=== PATIENT | female | born 1955 | race American Indian/Alaskan Native ===

== ENCOUNTER 2019-02-08 06:07 | Inpatient (IN) | payer MEDICARE ==
--- NOTE | 2019-02-02 12:17 | Anesthesia Consultation ---
Anesthesia Consult and Med Hx Date of service: 02/08/19 - Airway Anesthetic Teeth Evaluation: Edentulous ROM Head & Neck: Adequate Mental/Hyoid Distance: Adequate Mallampati Class: Class I Intubation Access Assessment: Good - Pre-Operative Health Status ASA Pre-Surgery Classification: ASA2 Proposed Anesthetic Plan: General - Pulmonary Hx Asthma: No (HX PE 2010-resolved) Hx Sleep Apnea: No (Yes, in the past; resolved after weight loss. Neg sleep study) - Cardiovascular System Hx Hypertension: Yes - Central Nervous System Hx Psychiatric Problems: Yes (Depression) - Gastrointestinal Hx Gastroesophageal Reflux Disease: Yes - Hematic Hx Anemia: Yes
[2019-02-02 12:29] LABS: Basophils # (Auto) 0.1 K/mm3 (0.0-0.1); Basophils % (Auto) 1.8 % (0.0-1.8); Eosinophils # (Auto) 0.1 K/mm3 (0.0-0.4); Eosinophils % (Auto) 4.1 % (0.0-4.3); Hematocrit 37.3 % (30.3-42.9); Hemoglobin 12.5 gm/dl (10.1-14.3); Lymphocytes # (Auto) 1.2 K/mm3 (1.2-5.4); Mean Corpuscular HGB Conc 33 % (30-34); Mean Corpuscular Volume 92 fl (79-97); Monocytes # (Auto) 0.2 K/mm3 (0.0-0.8); Monocytes % (Auto) 7.5 % (0.0-7.3); Platelet Count 244 K/mm3 (140-440); Red Blood Count 4.07 M/mm3 (3.65-5.03); Red Cell Distribution Width 14.9 % (13.2-15.2)
[2019-02-02 12:43] LABS: Alanine Aminotransferase 23 units/L (7-56); BUN/Creatinine Ratio 19; Blood Urea Nitrogen 13 mg/dL (7-17); Calcium 9.2 mg/dL (8.4-10.2); Chol/HDL Ratio 1.54 %; HDL Cholesterol 83 mg/dL (40-59); Hemolysis Index 8; LDL Cholesterol,Direct 43 mg/dL (50-130)
[~2019-02-08 06:07] MED LIST: ANCEF/STERILE WATER 2 GM/20 ML 2 GM/20 ML SYRINGE IV NR; FLAGYL 500 MG/100 ML 500 MG/100 ML BAG IV NR; ceFAZolin 2 GM in NACL 0.9% 100 ML IV ONE
[2019-02-08] MEDS ORDERED: NACL BACTERIOSTATIC INFILTRATI ONE (06:39)
[2019-02-08] MEDS: LACTATED RINGERS 1,000 ML IV SCH ×4 (06:50→22:03)
[2019-02-08] MEDS ORDERED: XYLOCAINE 1% 20 mL ONE (06:55)
[2019-02-08] MEDS ORDERED: MARCAINE-EPI 0.5%-1:200,000 INFILTRATI ONE ×3 (06:55→08:31)
[2019-02-08] MEDS ORDERED: DILAUDID ONE (07:11)
[2019-02-08] MEDS ORDERED: DIPRIVAN 10 MG/ML IV ONE (07:12)
[2019-02-08] MEDS ORDERED: ZEMURON IV ONE (07:13)
[2019-02-08] MEDS ORDERED: XYLOCAINE MPF 2% ONE (07:13)
--- NOTE | 2019-02-08 07:19 | Anesthesia Day of Surgery ---
Anesthesia Day of Surgery - Day of Surgery Patient Examined: Yes Patient H&P Reviewed: Yes Patient is NPO: Yes
[2019-02-08] MEDS ORDERED: ZOFRAN IV PRN ×2 (07:20→07:43)
[2019-02-08] MEDS ORDERED: DILAUDID IV PRN ×2 (07:20→07:43)
[2019-02-08] MEDS ORDERED: LOVENOX SUB-Q NR (07:24)
[2019-02-08] MEDS ORDERED: LOVENOX SUB-Q ONE (07:28)
[2019-02-08] MEDS ORDERED: APRESOLINE IV PRN ×2 (07:43→09:58)
[2019-02-08] MEDS ORDERED: NORCO PO PRN (07:43)
[2019-02-08] MEDS ORDERED: MORPHINE IV PRN (07:43)
[2019-02-08] MEDS ORDERED: XYLOCAINE 1% 20 mL INFILTRATI ONE ×2 (08:32)
[2019-02-08] MEDS ORDERED: NACL 0.9% IR ONE ×2 (08:32)
[2019-02-08] MEDS ORDERED: BLOXIVERZ ONE (09:11)
[2019-02-08] MEDS ORDERED: ROBINUL ONE (09:11)
[2019-02-08] MEDS ORDERED: ZOFRAN ONE (09:12)
[2019-02-08] MEDS ORDERED: NACL 0.9% 1000 ML 1,000 ML ONE (09:19)
[2019-02-08] MEDS: TORADOL IV SCH ×3 (10:35→22:16)
--- NOTE | 2019-02-08 13:05 | Post Anesthesia Evaluation ---
- Post Anesthesia Evaluation Patient Participated: Yes Airway Patent: Yes Stable Respiratory Function: Yes Nausea/Vomiting: No Temp > 96.8F: Yes Pain Manageable: Yes Adequeate Hydration: Yes Anesthesia Complications: No Block Receding Appropriately: Not Applicable Patient on Ventilator: No
[2019-02-08] MEDS: MYLICON PO PRN ×2 (14:36→22:02)
[2019-02-08] MEDS: NORCO 10/325 PO SCH ×2 (19:39→22:02)
[2019-02-08] MEDS: REGLAN IV PRN (22:03)
[2019-02-09] MEDS: TORADOL IV SCH ×2 (03:00→12:42)
[2019-02-09 06:16] LABS: Basophils % (Auto) 0.4 % (0.0-1.8); Eosinophils % (Auto) 0.4 % (0.0-4.3); Hematocrit 32.5 % (30.3-42.9); Lymphocytes # (Auto) 1.6 K/mm3 (1.2-5.4); Lymphocytes % (Auto) 21.6 % (13.4-35.0); Mean Corpuscular HGB Conc 34 % (30-34); Mean Corpuscular Volume 91 fl (79-97); Monocytes # (Auto) 0.6 K/mm3 (0.0-0.8); Monocytes % (Auto) 7.8 % (0.0-7.3); Platelet Count 196 K/mm3 (140-440); Red Blood Count 3.57 M/mm3 (3.65-5.03); Red Cell Distribution Width 14.6 % (13.2-15.2)
[2019-02-09] MEDS: LACTATED RINGERS 1,000 ML IV SCH (06:31)
[2019-02-09 06:40] LABS: BUN/Creatinine Ratio 9; Blood Urea Nitrogen 8 mg/dL (7-17); Calcium 8.5 mg/dL (8.4-10.2); Hemolysis Index 3
--- NOTE | 2019-02-09 06:51 | Discharge Summary ---
Providers - Providers Date of Admission: 02/08/19 06:07 Date of discharge: 02/09/19 Attending physician: FREIDA MESSINA Primary care physician: ROLAN BOOTH Hospitalization Reason for admission: postop Condition: Good Procedures: 02/08/19: Laparoscopic partial gastrectomy, HHR Hospital course: 63F admitted after her operation for routine monitoring. She was managed on the general surgical floor. Her BP was high after surgery, this resolved with medication and was lower on the day of discharge. Patient ambulated, tolerated a CLD, pain under control, and was dc home POD1. Disposition: DC-01 TO HOME OR SELFCARE Core Measure Documentation - Palliative Care Palliative Care/ Comfort Measures: Not Applicable - Core Measures Any of the following diagnoses?: none - VTE Discharge Requirements Deep Vein Thrombosis/Pulmonary Embolism Present on Admission: No - Acute [place] Discharge Requirements Aspirin at discharge: No Reason for no aspirin on DC: Surgical contraindication - Heart Failure Discharge Requirements ZOIE/ARB for LVSD if EF <40%: Not Applicable - Stroke Discharge Requirements Statin for LDL = or >70 mg/dl on DC: Not Applicable Exam - Physical Exam Narrative exam: Gen: AAO, NAD Heart: RRR Lungs: Clear Abd: Obese, soft, NT, ND. Bandages c/d/i. Ext: No LE Edema - Constitutional Vitals: Temp Pulse Resp BP Pulse Ox 98.5 F 61 20 91/56 99 02/09/19 00:20 02/09/19 04:57 02/09/19 04:57 02/09/19 04:57 02/09/19 00:20 Plan Diet: clear liquids Wound: keep clean and dry Special Instructions: no heavy lifting Additional Instructions: Marcelino Messina as scheduled Follow up with: ROLAN BOOTH MD [Primary Care Provider] - 7 Days
[2019-02-09] MEDS ORDERED: NACL 0.9% 1000 ML 1,000 ML IV ONE (07:30)
[2019-02-09] MEDS ORDERED: COZAAR PO SCH (08:00)
[2019-02-09] MEDS: MYLICON PO PRN (08:24)
[2019-02-09] MEDS: REGLAN IV PRN (08:24)
[2019-02-09] MEDS: NORCO 10/325 PO SCH (09:36)
[2019-02-09] MEDS ORDERED: HCTZ PO SCH (10:00)
[2019-02-09] MEDS ORDERED: WELLBUTRIN PO SCH (10:00)
[2019-02-09] MEDS ORDERED: LOVENOX SUB-Q SCH (10:00)
[2019-02-09] MEDS ORDERED: PEPCID PO SCH (10:00)
[2019-02-09] MEDS ORDERED: NORVASC PO SCH (10:00)
[2019-02-09 12:49] VITALS: BP 133/56
== END 2019-02-09 13:45 | disposition home or self-care (01) | DRG 327 ==
LOC: 3A 06:07 → 3B-SURG 10:03
PROVIDERS: ADMIT Specialist; ATTEND Specialist
PROC: 0BQT4ZZ Repair Diaphragm, Percutaneous Endoscopic Approach (ICD-10-PCS; principal; 2019-02-08)
PROC: 0D160ZA Bypass Stomach to Jejunum, Open Approach (ICD-10-PCS; 2019-02-08)
PROC: 0DB64ZZ Excision of Stomach, Percutaneous Endoscopic Approach (ICD-10-PCS; 2019-02-08)
DX: K95.89 Other complications of other bariatric procedure (principal); Z68.41 Body mass index [BMI] 40.0-44.9, adult; E66.01 Morbid (severe) obesity due to excess calories; K44.9 Diaphragmatic hernia without obstruction or gangrene; F32.9 Major depressive disorder, single episode, unspecified; K30 Functional dyspepsia; K59.01 Slow transit constipation; Y83.2 Surgical operation with anastomosis, bypass or graft as the cause of abnormal reaction of the patient, or of later complication, without mention of misadventure at the time of the procedure; I10 Essential (primary) hypertension; K21.9 Gastro-esophageal reflux disease without esophagitis; Z90.49 Acquired absence of other specified parts of digestive tract; Z79.899 Other long term (current) drug therapy; Y92.098 Other place in other non-institutional residence as the place of occurrence of the external cause; Z86.711 Personal history of pulmonary embolism
CPT/HCPCS: 36415; 80048; 80053; 80061; 84443; 85025; 88307; 94760; G0378; A4217; J0360; J0690; J1170; J1650; J1885; J2270; J2405; J2704; J2710; J2765; J7030; J7120

== ENCOUNTER 2019-02-10 09:26 | Inpatient (IN) | payer MEDICARE ==
[2019-02-10] MEDS ORDERED: ASPIRIN PO ONE (09:33)
[2019-02-10 10:19] LABS: Basophils % (Auto) 0.7 % (0.0-1.8); Eosinophils # (Auto) 0.2 K/mm3 (0.0-0.4); Eosinophils % (Auto) 3.6 % (0.0-4.3); Hematocrit 35.2 % (30.3-42.9); Lymphocytes # (Auto) 1.2 K/mm3 (1.2-5.4); Lymphocytes % (Auto) 20.7 % (13.4-35.0); Mean Corpuscular HGB Conc 34 % (30-34); Mean Corpuscular Volume 92 fl (79-97); Monocytes # (Auto) 0.5 K/mm3 (0.0-0.8); Monocytes % (Auto) 7.9 % (0.0-7.3); Platelet Count 214 K/mm3 (140-440); Red Blood Count 3.84 M/mm3 (3.65-5.03); Red Cell Distribution Width 14.4 % (13.2-15.2)
--- NOTE | 2019-02-10 10:22 | XRay Report ---
CHEST 1 VIEW INDICATION / CLINICAL INFORMATION: Chest Pain. COMPARISON: None available. FINDINGS: Patient is rotated. SUPPORT DEVICES: None. HEART / MEDIASTINUM: No significant abnormality. LUNGS / PLEURA: There is blunting of the right costophrenic angle characteristic of a small amount of pleural fluid or pleural thickening.. No pneumothorax. There is minimal linear scar or atelectasis in the left lower lung zone ADDITIONAL FINDINGS: No significant additional findings. IMPRESSION: 1. There is a small amount of right pleural fluid or pleural thickening. No pneumothorax is seen. Signer Name: Fercho Alejandre MD Signed: 02/10/2019 10:17 AM Workstation Name: [id number]
--- NOTE | 2019-02-10 10:29 | Emergency Department Report ---
ED General Adult HPI - General Chief complaint: Chest Pain Stated complaint: CHEST DISCOMFORT/CAN'T EAT Time Seen by Provider: 02/10/19 09:48 Source: patient Mode of arrival: Ambulatory Limitations: No Limitations - History of Present Illness Initial comments: She is a 63-year-old female status post gastric bypass and hernia repair who presents with nausea and vomiting and inability to eat. Patient states that ever since she had her surgery she's not been able to swallow any food or liquid down. Patient was seen by Dr. Messina she states that - Related Data Home Medications Medication Instructions Recorded Confirmed Last Taken HYDROcodone/APAP 10-325 [[place] 1 tab PO BID 02/04/19 02/04/19 02/07/19 21:00 10-325 mg TAB] Losartan/Hydrochlorothiazide 1 each PO DAILY 02/04/19 02/04/19 02/07/19 21:00 [Hyzaar 100-12.5 Tablet] Ranitidine HCl [Zantac] 150 mg PO DAILY 02/04/19 02/04/19 02/07/19 21:00 amLODIPine [Norvasc] 10 mg PO DAILY 02/04/19 02/08/19 02/08/19 05:15 buPROPion [Wellbutrin] 200 mg PO DAILY 02/04/19 02/04/19 02/07/19 21:00 Allergies Allergy/AdvReac Type Severity Reaction Status Date / Time No Known Allergies Allergy Verified 02/10/19 09:28 ED Review of Systems ROS: Stated complaint: CHEST DISCOMFORT/CAN'T EAT Other details as noted in HPI Constitutional: denies: chills, fever Eyes: denies: eye pain, eye discharge, vision change ENT: denies: ear pain, throat pain Respiratory: denies: cough, shortness of breath, wheezing Cardiovascular: chest pain. denies: palpitations Endocrine: no symptoms reported Gastrointestinal: nausea, vomiting. denies: abdominal pain, diarrhea Genitourinary: denies: urgency, dysuria, discharge Musculoskeletal: denies: back pain, joint swelling, arthralgia Skin: denies: rash, lesions Neurological: denies: headache, weakness, paresthesias Psychiatric: denies: anxiety, depression Hematological/Lymphatic: denies: easy bleeding, easy bruising ED Past Medical Hx - Past Medical History Hx Hypertension: Yes Hx Pulmonary Embolism: Yes (bilateral 2010) Hx GERD: Yes Hx Arthritis: Yes Hx Asthma: No (HX PE 2011-resolved) - Surgical History Hx Cholecystectomy: Yes Additional Surgical History: gastrectomy, hernia repair - Social History Smoking Status: Never Smoker Substance Use Type: None - Medications Home Medications: Home Medications Medication Instructions Recorded Confirmed Last Taken Type HYDROcodone/APAP 10-325 [[place] 1 tab PO BID 02/04/19 02/04/19 02/07/19 21:00 History 10-325 mg TAB] Losartan/Hydrochlorothiazide 1 each PO DAILY 02/04/19 02/04/19 02/07/19 21:00 History [Hyzaar 100-12.5 Tablet] Ranitidine HCl [Zantac] 150 mg PO DAILY 02/04/19 02/04/19 02/07/19 21:00 History amLODIPine [Norvasc] 10 mg PO DAILY 02/04/19 02/08/19 02/08/19 05:15 History buPROPion [Wellbutrin] 200 mg PO DAILY 02/04/19 02/04/19 02/07/19 21:00 History ED Physical Exam - General Limitations: No Limitations General appearance: alert, in no apparent distress - Head Head exam: Present: atraumatic, normocephalic - Eye Eye exam: Present: normal appearance - ENT ENT exam: Present: mucous membranes moist - Neck Neck exam: Present: normal inspection - Respiratory Respiratory exam: Present: normal lung sounds bilaterally. Absent: respiratory distress - Cardiovascular Cardiovascular Exam: Present: regular rate, normal rhythm. Absent: systolic murmur, diastolic murmur, rubs, gallop - GI/Abdominal GI/Abdominal exam: Present: soft, normal bowel sounds - Extremities Exam Extremities exam: Present: normal inspection - Back Exam Back exam: Present: normal inspection - Neurological Exam Neurological exam: Present: alert, oriented X3 - Psychiatric Psychiatric exam: Present: normal affect, normal mood - Skin Skin exam: Present: warm, dry, intact, normal color. Absent: rash ED Course Vital Signs 02/10/19 09:33 Temperature 98 F Pulse Rate 65 Respiratory 16 Rate Blood Pressure 149/69 [Left] O2 Sat by Pulse 99 Oximetry - Consultations Consultation #1: 02/10/19 13:[address] Collins she willsee the patient in the morning. ED Medical Decision Making - Lab Data Result diagrams: 02/10/19 10:00 07/04/19 10:00 Lab Results 02/10/19 02/10/19 Range/Units 10:00 10:00 WBC 5.8 (4.5-11.0) K/mm3 RBC 3.84 (3.65-5.03) M/mm3 Hgb 12.0 (10.1-14.3) gm/dl Hct 35.2 (30.3-42.9) % MCV 92 (79-97) fl MCH 31 (28-32) pg MCHC 34 (30-34) % RDW 14.4 (13.2-15.2) % Plt Count 214 (140-440) K/mm3 Lymph % (Auto) 20.7 (13.4-35.0) % [place] % (Auto) 7.9 H (0.0-7.3) % Eos % (Auto) 3.6 (0.0-4.3) % Baso % (Auto) 0.7 (0.0-1.8) % Lymph # 1.2 (1.2-5.4) K/mm3 [place] # 0.5 (0.0-0.8) K/mm3 Eos # 0.2 (0.0-0.4) K/mm3 Baso # 0.0 (0.0-0.1) K/mm3 Seg Neutrophils % 67.1 (40.0-70.0) % Seg Neutrophils # 3.9 (1.8-7.7) K/mm3 Sodium 137 (137-145) mmol/L Potassium 3.8 (3.6-5.0) mmol/L Chloride 100.4 (98-107) mmol/L Carbon Dioxide 24 (22-30) mmol/L Anion Gap 16 mmol/L BUN 8 (7-17) mg/dL Creatinine 0.7 (0.7-1.2) mg/dL Estimated GFR > 60 ml/min BUN/Creatinine Ratio 11 % Glucose 76 (65-100) mg/dL Calcium 9.0 (8.4-10.2) mg/dL Troponin T < 0.010 (0.00-0.029) ng/mL - EKG Data -: EKG Interpreted by Sd - EKG Data 02/10/19 13:07 CT scan shows normal sinus rhythm no ST segment elevation or T-wave inversion normal axis. - Radiology Data Radiology results: report reviewed, image reviewed CT scan: Shows stricture in the esophagus. - Medical Decision Making Medical diagnosis esophageal stricture Differential diagnosis: Small bowel obstruction, GERD, reflux, postsurgical complication excellent I will consult with surgeon LOBE work IV PAIN MEDICATION IV PEPCID AND IV FLUIDS AND WILL ADMIT THE PATIENT TO THE HOSPITAL Critical care attestation.: If time is entered above; I have spent that time in minutes in the direct care of this critically ill patient, excluding procedure time. ED Disposition Clinical Impression: Esophageal stricture Nausea & vomiting Qualifiers: Vomiting type: unspecified Vomiting Intractability: unspecified Qualified Code(s): R11.2 - Nausea with vomiting, unspecified Disposition: DC-09 OP ADMIT IP TO THIS HOSP Is pt being admited?: No Does the pt Need Aspirin: No Condition: Stable Referrals: JONATHAN CASTILLO MD [Primary Care Provider] - 3-5 Days
[2019-02-10] MEDS ORDERED: PEPCID IV ONE (10:30)
[2019-02-10 10:40] LABS: BUN/Creatinine Ratio 11; Blood Urea Nitrogen 8 mg/dL (7-17); Hemolysis Index 8
--- NOTE | 2019-02-10 12:20 | Cat Scan Report ---
CT abdomen pelvis w con INDICATION: MAIN: Abdominal surgery (previous gastric bypass and going in again) on . N/V since Thursday.. TECHNIQUE: All CT scans at this location are performed using the following dose modulation technique: Automated exposure control. Helical slices were obtained through the abdomen and pelvis. 100 cc of Omnipaque 30 0 is administered. COMPARISON: None available. FINDINGS: Abdomen: There is mild acetabular atelectasis in the lungs. Changes of gastric bypass are noted. Esop hagus is distended with air with a very small amount of layering fluid in the midesophagus. There is a small amount of air in the right abdominal wall. No free intraperitoneal air is seen. Changes of pr ior cholecystectomy are noted. There is an IVC filter. Small cyst in the upper pole the left kidney and a small cyst in the mid right kidney. There is no ad enopathy. On review of bone windows, no acute osseous abnormalities are seen. Pelvis: There is no obstruction or inflammation. Bowel is unremarkable. There are phleboliths. IMPRESSION: Changes of gastric bypass are noted. The esophagus is distended with air and contains a v queta small amount of fluid. This could represent reflux. Possibility of obstruction or stricture at th e level the gastric remnant is considered as well. There is no free air. There are no abnormal fluid collections. There is a small amount of gas in the dominant wall right. Signer Name: Fercho Alejandre MD Signed: 02/10/2019 12:15 PM Workstation Name: [id number]
[2019-02-10] MEDS ORDERED: NACL 0.9% 1000 ML 1,000 ML IV ONE (13:05)
[2019-02-10] MEDS ORDERED: SUBLIMAZE IV ONE (13:14)
[2019-02-10] MEDS ORDERED: ZOFRAN IV ONE (13:49)
[2019-02-10] MEDS ORDERED: TYLENOL PO PRN (19:01)
[2019-02-10] MEDS ORDERED: SODIUM CHLORIDE FLUSH SYRINGE 10 ML IV PRN (19:01)
[2019-02-10] MEDS: DILAUDID IV PRN ×3 (20:29→23:38)
[2019-02-10] MEDS: ZOFRAN IV PRN ×2 (20:29→20:31)
[2019-02-10] MEDS ORDERED: DILAUDID ONE (20:29)
[2019-02-10] MEDS ORDERED: ZOFRAN ONE (20:29)
[2019-02-10] MEDS: HEPARIN SUB-Q SCH (21:26)
[2019-02-10] MEDS: SODIUM CHLORIDE FLUSH SYRINGE 10 ML IV SCH (23:38)
[2019-02-11] MEDS: DILAUDID IV PRN ×4 (02:41→20:10)
[2019-02-11] MEDS: ZOFRAN IV PRN ×4 (02:41→20:11)
--- NOTE | 2019-02-11 07:01 | History and Physical Report ---
History of Present Illness Date of examination: 02/10/19 Date of admission: 02/10/19 19:01 Chief complaint: Persistent vomiting for 2 days History of present illness: History of Present Illness 63-year-old female with pmh of HTN Depression and GERD ,status post gastric bypass and hernia repair who presents with nausea and vomiting and inability to eat. Patient states that ever since she had her surgery she's not been able to swallow any food or liquid down. Patient had revision Gastric bypass surgery on February 082018. Abd pain 6 on a scale of 1 to 10. Past Medical History Hypertension Pulmonary Embolism: Yes (bilateral 2010) GERD Arthritis Surgical History Cholecystectomy: Yes Gastric Bypass surgery few years ago Revision Bariatric surgery on February 08 2019 Social History Smoking Status: Never Smoker Substance Use Type: None Family History Htn Review of Systems ROS: Stated complaint: CHEST DISCOMFORT/CAN'T EAT Other details as noted in HPI Constitutional: denies: chills, fever Eyes: denies: eye pain, eye discharge, vision change ENT: denies: ear pain, throat pain Respiratory: denies: cough, shortness of breath, wheezing Cardiovascular: chest pain. denies: palpitations Endocrine: no symptoms reported Gastrointestinal: nausea, vomiting. denies: abdominal pain, diarrhea Genitourinary: denies: urgency, dysuria, discharge Musculoskeletal: denies: back pain, joint swelling, arthralgia Skin: denies: rash, lesions Neurological: denies: headache, weakness, paresthesias Psychiatric: denies: anxiety, depression Hematological/Lymphatic: denies: easy bleeding, easy bruising Medications and Allergies Allergies Allergy/AdvReac Type Severity Reaction Status Date / Time No Known Allergies Allergy Verified 02/10/19 09:28 Home Medications Medication Instructions Recorded Confirmed Last Taken Type HYDROcodone/APAP 10-325 [[place] 1 tab PO BID 02/04/19 02/10/19 02/07/19 21:00 History 10-325 mg TAB] Losartan/Hydrochlorothiazide 1 each PO DAILY 02/04/19 02/10/19 02/07/19 21:00 History [Hyzaar 100-12.5 Tablet] Ranitidine HCl [Zantac] 150 mg PO DAILY 02/04/19 02/10/19 02/07/19 21:00 History amLODIPine [Norvasc] 10 mg PO DAILY 02/04/19 02/10/19 02/08/19 05:15 History buPROPion [Wellbutrin] 200 mg PO DAILY 02/04/19 02/10/19 02/07/19 21:00 History Active Meds: Active Medications Acetaminophen (Tylenol) 650 mg PO Q4H PRN PRN Reason: Pain MILD(1-3)/Fever >100.5/[place] Heparin Sodium (Porcine) (Heparin) 5,000 unit SUB-Q Q12HR [facility] Last Admin: 02/10/19 21:26 Dose: 5,000 unit Documented by: Hydromorphone HCl (Dilaudid) 1 mg IV Q3H PRN PRN Reason: Pain , Severe (7-10) Last Admin: 02/11/19 02:41 Dose: 1 mg Documented by: Dextrose/Sodium Chloride (D5ns) 1,000 mls @ 100 mls/hr IV [facility] Ondansetron HCl (Zofran) 4 mg IV Q8H PRN PRN Reason: Nausea And Vomiting Last Admin: 02/11/19 02:41 Dose: 4 mg Documented by: Sodium Chloride (Sodium Chloride Flush Syringe 10 Ml) 10 ml IV BID [facility] Last Admin: 02/10/19 23:38 Dose: 10 ml Documented by: Sodium Chloride (Sodium Chloride Flush Syringe 10 Ml) 10 ml IV PRN PRN PRN Reason: LINE FLUSH Exam - Constitutional Vitals: Temp Pulse Resp BP Pulse Ox 98.1 F 60 18 105/54 97 02/11/19 05:00 02/11/19 05:00 02/11/19 05:00 02/11/19 05:00 02/11/19 05:00 General appearance: Present: no acute distress, well-nourished - EENT Eyes: Present: PERRL ENT: hearing intact, clear oral mucosa - Neck Neck: Present: supple, normal ROM - Respiratory Respiratory effort: normal Respiratory: bilateral: CTA - Cardiovascular Heart rate: 78 Rhythm: regular Heart Sounds: Present: S1 & S2. Absent: rub, click - Extremities Extremities: no ischemia, pulses intact, pulses symmetrical, No edema Peripheral Pulses: within normal limits - Abdominal General gastrointestinal: Present: soft, non-tender, non-distended, normal bowel sounds Female genitourinary: Present: normal - Rectal Rectal Exam: deferred - Integumentary Integumentary: Present: clear, warm, dry - Musculoskeletal Musculoskeletal: gait normal, strength equal bilaterally - Psychiatric Psychiatric: appropriate mood/affect, intact judgment & insight - Neurologic Neurologic: CNII-XII intact, moves all extremities - Allied Health Allied health notes reviewed: nursing, case management Results - Labs CBC & Chem 7: 02/10/19 10:00 02/10/19 10:00 Labs: Laboratory Last Values WBC 5.8 K/mm3 (4.5-11.0) 02/10/19 10:00 RBC 3.84 M/mm3 (3.65-5.03) 02/10/19 10:00 Hgb 12.0 gm/dl (10.1-14.3) 02/10/19 10:00 Hct 35.2 % (30.3-42.9) 02/10/19 10:00 MCV 92 fl (79-97) 02/10/19 10:00 MCH 31 pg (28-32) 02/10/19 10:00 MCHC 34 % (30-34) 02/10/19 10:00 RDW 14.4 % (13.2-15.2) 02/10/19 10:00 Plt Count 214 K/mm3 (140-440) 02/10/19 10:00 Lymph % (Auto) 20.7 % (13.4-35.0) 02/10/19 10:00 [place] % (Auto) 7.9 % (0.0-7.3) H 02/10/19 10:00 Eos % (Auto) 3.6 % (0.0-4.3) 02/10/19 10:00 Baso % (Auto) 0.7 % (0.0-1.8) 02/10/19 10:00 Lymph # 1.2 K/mm3 (1.2-5.4) 02/10/19 10:00 [place] # 0.5 K/mm3 (0.0-0.8) 02/10/19 10:00 Eos # 0.2 K/mm3 (0.0-0.4) 02/10/19 10:00 Baso # 0.0 K/mm3 (0.0-0.1) 02/10/19 10:00 Seg Neutrophils % 67.1 % (40.0-70.0) 02/10/19 10:00 Seg Neutrophils # 3.9 K/mm3 (1.8-7.7) 02/10/19 10:00 Sodium 137 mmol/L (137-145) 02/10/19 10:00 Potassium 3.8 mmol/L (3.6-5.0) 02/10/19 10:00 Chloride 100.4 mmol/L (98-107) 02/10/19 10:00 Carbon Dioxide 24 mmol/L (22-30) 02/10/19 10:00 16 mmol/L 02/10/19 10:00 BUN 8 mg/dL (7-17) 02/10/19 10:00 0.7 mg/dL (0.7-1.2) 02/10/19 10:00 Estimated GFR > 60 ml/min 02/10/19 10:00 11 % 02/10/19 10:00 Glucose 76 mg/dL (65-100) 02/10/19 10:00 4.7 % (4-6) 02/10/19 10:00 Calcium 9.0 mg/dL (8.4-10.2) 02/10/19 10:00 < 0.010 ng/mL (0.00-0.029) 02/10/19 15:16 Short CBC 02/10/19 Range/Units 10:00 WBC 5.8 (4.5-11.0) K/mm3 Hgb 12.0 (10.1-14.3) gm/dl Hct 35.2 (30.3-42.9) % Plt Count 214 (140-440) K/mm3 BMP 02/10/19 10:00 Sodium 137 Potassium 3.8 Chloride 100.4 Carbon Dioxide 24 BUN 8 Creatinine 0.7 Glucose 76 Calcium 9.0 Cardiac Enzymes 02/10/19 02/10/19 02/10/19 Range/Units 10:00 12:39 15:16 Troponin T < 0.010 < 0.010 < 0.010 (0.00-0.029) ng/mL - Imaging and Cardiology EKG: report reviewed (NSR 64/min) CT scan - abdomen: report reviewed Imaging and Cardiology: CT abd IMPRESSION: Changes of gastric bypass are noted. The esophagus is distended with air and contains a very small amount of fluid. This could represent reflux. Possibility of obstruction or stricture at the level the gastric remnant is considered as well. There is no free air. There are no abnormal fluid collections. There is a small amount of gas in the dominant wall right. Assessment and Plan Advance Directives: Yes (Full code) VTE prophylaxis?: Chemical Plan of care discussed with patient/family: Yes - Patient Problems (1) Esophageal stricture Current Visit: Yes Status: Acute Plan to address problem: IV protonix initiated Clear Liquid diet Dr Chiu group to see the patient in AM EGD by GI if necessary IV Zofran and Reglan (2) Post-operative complication Current Visit: Yes Status: Acute Qualifiers: Surgical complication system/body Area: digestive system Plan to address problem: As above in Esophageal stricture (3) HTN (hypertension) Current Visit: Yes Status: Chronic Qualifiers: Hypertension type: essential hypertension Qualified Code(s): I10 - Essential (primary) hypertension Plan to address problem: Cont anihypertensives (4) GERD (gastroesophageal reflux disease) Current Visit: Yes Status: Chronic Qualifiers: Esophagitis presence: with esophagitis Qualified Code(s): K21.0 - Gastro- esophageal reflux disease with esophagitis Plan to address problem: On IV Protonix (5) Depression Current Visit: Yes Status: Chronic Qualifiers: Depression Type: unspecified Qualified Code(s): F32.9 - Major depressive d isorder, single episode, unspecified Plan to address problem: Cont wellbutrin (6) DVT prophylaxis Current Visit: Yes Status: Acute Plan to address problem: On Lovernox
--- NOTE | 2019-02-11 07:31 | Progress Note ---
Assessment and Plan Assessment and plan: Patient is a 62 yo woman with a history of HTN, PE in 2011, OA, Depression, GERD, status post gastric bypass and hernia repair who presents with nausea, vomiting and inability to eat after Gastric bypass revision surgery on February 082018. * pCXR Impression: There is a small amount of right pleural fluid or pleural thickening, no pneumothorax is seen. * CT abd/pelvis with IV IMPRESSION: Changes of gastric bypass are noted. The esophagus is distended with air and contains a very small amount of fluid. This could represent reflux. Possibility of obstruction or stricture at the level the gastric remnant is considered as well. There is no free air. There are no abnormal fluid collections. There is a small amount of gas in the dominant wall right. (1) Esophageal stricture Current Visit: Yes Status: Acute Plan to address problem: IV protonix initiated Clear Liquid diet Dr Chiu group to see Consulted GI IV Zofran and Reglan (2) Post-operative complication Current Visit: Yes Status: Acute Qualifiers: Surgical complication system/body Area: digestive system Plan to address problem: As above in Esophageal stricture (3) HTN (hypertension) Current Visit: Yes Status: Chronic Qualifiers: Hypertension type: essential hypertension Qualified Code(s): I10 - Essential (primary) hypertension Plan to address problem: Cont anihypertensives (4) GERD (gastroesophageal reflux disease) Current Visit: Yes Status: Chronic Qualifiers: Esophagitis presence: with esophagitis Qualified Code(s): K21.0 - Gastro- esophageal reflux disease with esophagitis Plan to address problem: On IV Protonix (5) Depression Current Visit: Yes Status: Chronic Qualifiers: Depression Type: unspecified Qualified Code(s): F32.9 - Major depressive disorder, single episode, unspecified Plan to address problem: Cont wellbutrin (6) DVT prophylaxis Current Visit: Yes Status: Acute Plan to address problem: On Lovernox History Interval history: Patient was seen and examined. Follow-up on current diagnosis of N/V. No overnight events reported to me. Patient denies any chest pain, shortness breath, severe headaches. Imaging, nursing note, chart, labs and old chart reviewed. Discussed with patient. Hospitalist Physical - Physical exam Narrative exam: Gen: WDWN, NAD, Awake, Alert, Orientated, bmi 40.4 HEENT: NCAT, EOMI, PERRL, OP Clear Neck: supple, no adenopathy, no thyromegaly, no JVD CVS/Heart: RRR, normal S1S2, pulses present bilaterally Chest/Lungs: CTA B, Symmetrical chest expansion, good air entry bilaterally GI/Abdomen: soft, NTND, good bowel sounds, no guarding or rebound /Bladder: no suprapubic tenderness, no CVA or paraspinal tenderness Extermity/Skin: no c/c/e, no obvious rash MSK: FROM x 4 Neuro: CN 2-12 grossly intact, no new focal deficits Psych: calm - Constitutional Vitals: Temp Pulse Resp BP Pulse Ox 98.1 F 60 18 105/54 97 02/11/19 05:00 02/11/19 05:00 02/11/19 05:00 02/11/19 05:00 02/11/19 05:00 General appearance: Present: no acute distress, well-nourished Results - Labs CBC & Chem 7: 02/11/19 07:38 02/11/19 07:38 Labs: Laboratory Last Values WBC 5.8 K/mm3 (4.5-11.0) 02/10/19 10:00 RBC 3.84 M/mm3 (3.65-5.03) 02/10/19 10:00 Hgb 12.0 gm/dl (10.1-14.3) 02/10/19 10:00 Hct 35.2 % (30.3-42.9) 02/10/19 10:00 MCV 92 fl (79-97) 02/10/19 10:00 MCH 31 pg (28-32) 02/10/19 10:00 MCHC 34 % (30-34) 02/10/19 10:00 RDW 14.4 % (13.2-15.2) 02/10/19 10:00 Plt Count 214 K/mm3 (140-440) 02/10/19 10:00 Lymph % (Auto) 20.7 % (13.4-35.0) 02/10/19 10:00 [place] % (Auto) 7.9 % (0.0-7.3) H 02/10/19 10:00 Eos % (Auto) 3.6 % (0.0-4.3) 02/10/19 10:00 Baso % (Auto) 0.7 % (0.0-1.8) 02/10/19 10:00 Lymph # 1.2 K/mm3 (1.2-5.4) 02/10/19 10:00 [place] # 0.5 K/mm3 (0.0-0.8) 02/10/19 10:00 Eos # 0.2 K/mm3 (0.0-0.4) 02/10/19 10:00 Baso # 0.0 K/mm3 (0.0-0.1) 02/10/19 10:00 Seg Neutrophils % 67.1 % (40.0-70.0) 02/10/19 10:00 Seg Neutrophils # 3.9 K/mm3 (1.8-7.7) 02/10/19 10:00 Sodium 137 mmol/L (137-145) 02/10/19 10:00 Potassium 3.8 mmol/L (3.6-5.0) 02/10/19 10:00 Chloride 100.4 mmol/L (98-107) 02/10/19 10:00 Carbon Dioxide 24 mmol/L (22-30) 02/10/19 10:00 16 mmol/L 02/10/19 10:00 BUN 8 mg/dL (7-17) 02/10/19 10:00 0.7 mg/dL (0.7-1.2) 02/10/19 10:00 Estimated GFR > 60 ml/min 02/10/19 10:00 11 % 02/10/19 10:00 Glucose 76 mg/dL (65-100) 02/10/19 10:00 4.7 % (4-6) 02/10/19 10:00 Calcium 9.0 mg/dL (8.4-10.2) 02/10/19 10:00 < 0.010 ng/mL (0.00-0.029) 02/10/19 15:16 Active Medications - Current Medications Current Medications: Generic Name Dose Route Start Last Admin Trade Name Freq PRN Reason Stop Dose Admin Acetaminophen 650 mg 02/10/19 19:01 Tylenol PO Q4H PRN Pain MILD(1-3)/Fever >100.5/ANDERSON Heparin Sodium (Porcine) 5,000 unit 02/10/19 22:00 02/10/19 21:26 Heparin SUB-Q 5,000 unit Q12HR [facility]ZEL Administration Hydromorphone HCl 1 mg 02/10/19 19:05 02/11/19 02:41 Dilaudid IV 1 mg Q3H PRN Administration Pain , Severe (7-10) Dextrose/Sodium Chloride 1,000 mls @ 100 mls/hr 02/10/19 20:00 D5ns IV DIRECT [facility]ZEL Ondansetron HCl 4 mg 02/10/19 19:01 02/11/19 02:41 Zofran IV 4 mg Q8H PRN Administration Nausea And Vomiting Pantoprazole Sodium 40 mg 02/11/19 08:00 Protonix IV BID HAZEL Sodium Chloride 10 ml 02/10/19 22:00 02/10/19 23:38 Sodium Chloride Flush Syringe 10 Ml IV 10 ml BID HAZEL Administration Sodium Chloride 10 ml 02/10/19 19:01 Sodium Chloride Flush Syringe 10 Ml IV PRN PRN LINE FLUSH
[2019-02-11 08:56] LABS: Basophils % (Auto) 0.6 % (0.0-1.8); Eosinophils # (Auto) 0.4 K/mm3 (0.0-0.4); Hematocrit 32.9 % (30.3-42.9); Hemoglobin 11.1 gm/dl (10.1-14.3); Lymphocytes # (Auto) 1.2 K/mm3 (1.2-5.4); Lymphocytes % (Auto) 26.4 % (13.4-35.0); Mean Corpuscular HGB Conc 34 % (30-34); Mean Corpuscular Volume 92 fl (79-97); Monocytes # (Auto) 0.5 K/mm3 (0.0-0.8); Monocytes % (Auto) 12.1 % (0.0-7.3); Platelet Count 187 K/mm3 (140-440); Red Blood Count 3.58 M/mm3 (3.65-5.03); Red Cell Distribution Width 14.7 % (13.2-15.2)
[2019-02-11 09:29] LABS: Alanine Aminotransferase 21 units/L (7-56); BUN/Creatinine Ratio 10; Blood Urea Nitrogen 6 mg/dL (7-17); Calcium 8.7 mg/dL (8.4-10.2); Hemolysis Index 28
[2019-02-11] MEDS: PROTONIX IV SCH ×2 (10:23→21:05)
--- NOTE | 2019-02-11 10:32 | Consultation ---
History of Present Illness - Reason for Consult Consult date: 02/11/19 nausea, vomiting Requesting physician: CJ BLOUNT - History of Present Illness 63F who underwent recent laparoscopic gastrojejunostomy revision and hiatal hernia repair 02/08/[address] Messina readmitted with nausea, vomiting, and inability for po intake on POD#2. She was discharged home 7 after an uneventful hospital stay. Patient reports that after she went home, she gradually started to spit up foam and was unable to get her liquids down. She states that this happened after she took 4 large pills. Denies F/C/SOB/diarrhea or constipation. She started having chest pressure and a choking sensation and presented herself back to the ER for evaluation. In the ER, labs were WNL. A CT abdpelvis with IV contrast demonstrated a dilated esophagus with air/fluid levels and a tight anastomosis. There was no free air, and other findings were usual postoperative changes. She was given IVFs and admitted to the general surgical floor under the hospitalist. Today, she reports feeling marginally better. She is still spitting up a lot of foam, but feels like the IVFs helped her. She's afraid to eat anything or swallow anything. Past History Past Medical History: hypertension Past Surgical History: Other (LRYGB 2011; Laparoscopic GJ revision with Hiatal hernia repair 02/08/19) Social history: full code Family history: no significant family history Medications and Allergies Allergies Allergy/AdvReac Type Severity Reaction Status Date / Time No Known Allergies Allergy Verified 02/10/19 09:28 Home Medications Medication Instructions Recorded Confirmed Last Taken Type HYDROcodone/APAP 10-325 [[place] 1 tab PO BID 02/04/19 02/10/19 02/07/19 21:00 History 10-325 mg TAB] Losartan/Hydrochlorothiazide 1 each PO DAILY 02/04/19 02/10/19 02/07/19 21:00 History [Hyzaar 100-12.5 Tablet] Ranitidine HCl [Zantac] 150 mg PO DAILY 02/04/19 02/10/19 02/07/19 21:00 History amLODIPine [Norvasc] 10 mg PO DAILY 02/04/19 02/10/19 02/08/19 05:15 History buPROPion [Wellbutrin] 200 mg PO DAILY 02/04/19 02/10/1919 21:00 History Active Meds: Active Medications Acetaminophen (Tylenol) 650 mg PO Q4H PRN PRN Reason: Pain MILD(1-3)/Fever >100.5/ANDERSON Heparin Sodium (Porcine) (Heparin) 5,000 unit SUB-Q Q12HR [facility] Last Admin: 02/10/19 21:26 Dose: 5,000 unit Documented by: Hydromorphone HCl (Dilaudid) 1 mg IV Q3H PRN PRN Reason: Pain , Severe (7-10) Last Admin: 02/11/19 02:41 Dose: 1 mg Documented by: Dextrose/Sodium Chloride (D5ns) 1,000 mls @ 100 mls/hr IV DIRECT [facility] Ondansetron HCl (Zofran) 4 mg IV Q8H PRN PRN Reason: Nausea And Vomiting Last Admin: 02/11/19 02:41 Dose: 4 mg Documented by: Pantoprazole Sodium (Protonix) 40 mg IV BID [facility] Sodium Chloride (Sodium Chloride Flush Syringe 10 Ml) 10 ml IV BID [facility] Last Admin: 02/10/19 23:38 Dose: 10 ml Documented by: Sodium Chloride (Sodium Chloride Flush Syringe 10 Ml) 10 ml IV PRN PRN PRN Reason: LINE FLUSH Review of Systems All systems: negative (as indicated in HPI) Exam - Physical Exam Narrative exam: Gen: AAO, NAD HEENT: Trachea midline, no masses Heart: RRR Lungs: CTAB, no wheezes, no rales Abd: Soft, obese, NT, ND. Bandages c/d/i. Ext: No LE edema - Constitutional Vitals: Temp Pulse Resp BP Pulse Ox 98.2 F 55 L 18 104/54 96 02/11/19 07:50 02/11/19 07:50 02/11/19 07:50 02/11/19 07:50 02/11/19 07:50 Results - Labs CBC & Chem 7: 02/11/19 07:38 02/11/19 07:38 Labs: Abnormal lab results 02/11/19 02/11/19 Range/Units 07:38 07:38 WBC 4.4 L (4.5-11.0) K/mm3 RBC 3.58 L (3.65-5.03) M/mm3 [place] % (Auto) 12.1 H (0.0-7.3) % Eos % (Auto) 9.0 H (0.0-4.3) % BUN 6 L (7-17) mg/dL Creatinine 0.6 L (0.7-1.2) mg/dL Glucose 122 H (65-100) mg/dL Total Protein 6.2 L (6.3-8.2) g/dL Albumin 3.0 L (3.9-5) g/dL - Imaging and Cardiology Chest x-ray: report reviewed CT scan - abdomen: report reviewed, image reviewed CT scan - pelvis: report reviewed, image reviewed Assessment and Plan 63[address] Messina s/p lap GJ revision with HHR 02/08/19, readmitted with nausea and vomiting, likely from GJ edema. #1 Nausea/vomiting #2 GJ edema #3 s/p lap GJ revision/HHR 02/08 - Images were reviewed, the swelling should decrease with minimal po intake and IVFs after a few days. No surgical intervention or endoscopy is needed. I discussed the findings of the CT scan with the patient and the likely etiology of her symptoms. All her questions were answered. - Patient may have a bariatric clear liquid diet as tolerated - IV famotidine - Cont IVFs - all medications should be crushed - ambulate ad mercedes - IS to patient Thank you for the consult. Will follow. Edyta Kaufman MD Bariatric Fellow
[2019-02-11] MEDS: SODIUM CHLORIDE FLUSH SYRINGE 10 ML IV SCH ×2 (11:25→21:14)
[2019-02-11] MEDS: HEPARIN SUB-Q SCH ×2 (11:30→21:05)
--- NOTE | 2019-02-11 18:17 | Gastroenterology Consultation ---
History of Present Illness - Reason for Consult Consult date: 02/11/19 dysphagia Requesting physician: NASIMA PALENCIA - History of Present Illness This is a 63 yo female with recent lap gastrojejunostomy revision and hiatal hernia repair on 02/08/[address] Messina admitted for nausea/vomiting. She reports when she went home, she was spitting up foam and could not keep anything done. Work up so far with CT abdomen/pelvis with IV contrast showing a dilated esophagus with air/fluid levels and a tight anastomosis. She has been on clear liquids. Today, she reports she feels better and able to keep water and liquids now. She is not spitting up foamy liquid as before. Abdominal pain stable since surgery. Past History Past Medical History: hypertension Past Surgical History: Other (LRYGB 2011; Laparoscopic GJ revision with Hiatal hernia repair 02/08/19) Social history: full code Family history: no significant family history Medications and Allergies Allergies Allergy/AdvReac Type Severity Reaction Status Date / Time No Known Allergies Allergy Verified 02/10/19 09:28 Home Medications Medication Instructions Recorded Confirmed Last Taken Type HYDROcodone/APAP 10-325 [[place] 1 tab PO BID 02/04/19 02/10/19 02/07/19 21:00 History 10-325 mg TAB] Losartan/Hydrochlorothiazide 1 each PO DAILY 02/04/19 02/10/19 02/07/19 21:00 History [Hyzaar 100-12.5 Tablet] Ranitidine HCl [Zantac] 150 mg PO DAILY 02/04/19 02/10/19 02/07/19 21:00 History amLODIPine [Norvasc] 10 mg PO DAILY 02/04/19 02/10/19 02/08/19 05:15 History buPROPion [Wellbutrin] 200 mg PO DAILY 02/04/19 02/10/19 02/07/19 21:00 History Active Meds: Active Medications Acetaminophen (Tylenol) 650 mg PO Q4H PRN PRN Reason: Pain MILD(1-3)/Fever >100.5/ANDERSON Heparin Sodium (Porcine) (Heparin) 5,000 unit SUB-Q Q12HR [facility] Last Admin: 02/11/19 11:30 Dose: 5,000 unit Documented by: Hydromorphone HCl (Dilaudid) 1 mg IV Q3H PRN PRN Reason: Pain , Severe (7-10) Last Admin: 02/11/19 15:43 Dose: 1 mg Documented by: Dextrose/Sodium Chloride (D5ns) 1,000 mls @ 100 mls/hr IV DIRECT COUNTS INCLUDE 234 BEDS AT [facility] Ondansetron HCl (Zofran) 4 mg IV Q4H PRN PRN Reason: Nausea And Vomiting Last Admin: 02/11/19 15:43 Dose: 4 mg Documented by: Pantoprazole Sodium (Protonix) 40 mg IV BID COUNTS INCLUDE 234 BEDS AT [facility] Last Admin: 02/11/19 10:23 Dose: 40 mg Documented by: Sodium Chloride (Sodium Chloride Flush Syringe 10 Ml) 10 ml IV BID COUNTS INCLUDE 234 BEDS AT [facility] Last Admin: 02/11/19 11:25 Dose: 10 ml Documented by: Sodium Chloride (Sodium Chloride Flush Syringe 10 Ml) 10 ml IV PRN PRN PRN Reason: LINE FLUSH Medication list reviewed and updated. Review of Systems - Review of Systems All systems: negative Eyes: no change in vision Gastrointestinal: abdominal pain, nausea, vomiting, loss of appetite, heartburn, belching, no BRBPR, no melena Exam - Constitutional Vital Signs: Temp Pulse Resp BP Pulse Ox 98.3 F 56 L 18 116/58 97 02/11/19 16:27 02/11/19 16:27 02/11/19 16:27 02/11/19 16:27 02/11/19 16:27 General appearance: no acute distress, well-nourished - EENT ENT: clear oral mucosa, dentition normal - Neck Neck: supple, normal ROM, no masses or JVD - Respiratory Respiratory effort: normal Respiratory: bilateral: CTA - Breasts Breasts: deferred - Cardiovascular Rhythm: regular Heart Sounds: Present: S1 & S2. Absent: gallop, rub Extremities: pulses intact, No edema, normal color, Full ROM - Gastrointestinal General gastrointestinal: Present: soft, tender, non-distended, normal bowel sounds - Integumentary Integumentary: Present: clear, warm, dry - Neurologic Neurological: alert and oriented x3 - Psychiatric Psychiatric: appropriate mood/affect, intact judgment & insight, memory intact - Labs CBC & Chem 7: 02/11/19 07:38 02/11/19 07:38 Lab Results: Laboratory Results - last 24 hr 02/10/19 02/11/19 02/11/19 10:00 07:38 07:38 WBC 4.4 L RBC 3.58 L Hgb 11.1 Hct 32.9 MCV 92 MCH 31 MCHC 34 RDW 14.7 Plt Count 187 Lymph % (Auto) 26.4 [place] % (Auto) 12.1 H Eos % (Auto) 9.0 H Baso % (Auto) 0.6 Lymph # 1.2 [place] # 0.5 Eos # 0.4 Baso # 0.0 Seg Neutrophils % 51.9 Seg Neutrophils # 2.3 Sodium 138 Potassium 3.7 Chloride 102.5 Carbon Dioxide 24 Anion Gap 15 BUN 6 L Creatinine 0.6 L Estimated GFR > 60 BUN/Creatinine Ratio 10 Glucose 122 H Hemoglobin A1c 4.7 Calcium 8.7 Total Bilirubin 0.50 AST 22 ALT 21 Alkaline Phosphatase 49 Total Protein 6.2 L Albumin 3.0 L Albumin/Globulin Ratio 0.9 - Imaging CT Scan: report reviewed Assessment and Plan 63 yo female with recent lap gastrojejunostomy revision and hiatal hernia repair on 02/08/[address] Messina admitted for nausea/vomiting. # Nausea/vomiting - likely 2/2 post surgical changes and edema at the distal esophagus and repair site. - currently tolerating clear liquids. - will defer to bariatric surgery service for further management. - no plans for endoscopy with GI. - will sign off. please call with questions.
[2019-02-11] MEDS: D5NS 1,000 ML IV SCH (21:07)
[2019-02-12] MEDS: ZOFRAN IV PRN ×5 (01:41→21:06)
[2019-02-12] MEDS: DILAUDID IV PRN ×5 (01:42→21:07)
[2019-02-12 04:36] LABS: Hematocrit 30.8 % (30.3-42.9); Hemoglobin 10.3 gm/dl (10.1-14.3); Mean Corpuscular HGB Conc 33 % (30-34); Mean Corpuscular Volume 92 fl (79-97); Platelet Count 184 K/mm3 (140-440); Red Blood Count 3.34 M/mm3 (3.65-5.03); Red Cell Distribution Width 14.4 % (13.2-15.2)
[2019-02-12 05:49] LABS: BUN/Creatinine Ratio 5; Blood Urea Nitrogen 3 mg/dL (7-17); Calcium 8.4 mg/dL (8.4-10.2); Hemolysis Index 6
--- NOTE | 2019-02-12 09:00 | Progress Note ---
Assessment and Plan 63[address] Messina s/p lap GJ revision with HHR 02/08/19, readmitted with nausea and vomiting, likely from GJ edema. #1 Nausea/vomiting #2 GJ edema #3 s/p lap GJ revision/HHR 02/08 - Patient may have a bariatric clear liquid diet as tolerated - IV PPI --> transition to po meds - Cont IVFs - all medications should be crushed - ambulate ad mercedes - IS to patient - She is improving and able to tolerate a CLD. She is apprehensive about going home. She would like to stay another day and dc tomorrow. Replete electrolytes per hospitalist. Edyta Kaufman MD Bariatric Fellow Subjective Date of service: 02/12/19 Principal diagnosis: Nausea and vomiting Interval history: No acute events. She was able to keep down clear fluids and feels like things are moving down now, but did have some nausea this morning. No vomiting. No abd or chest pain. Objective - Exam Narrative Exam: Gen: AAO, NAD HEENT: Trachea midline, no masses Heart: RRR Lungs: CTAB, no wheezes, no rales Abd: Soft, obese, NT, ND. Bandages c/d/i. Ext: No LE edema - Constitutional Vitals: Vital Signs - 12hr 02/11/19 02/11/19 02/12/19 22:00 23:46 01:42 Temperature 97.9 F Pulse Rate 54 L Respiratory 18 17 Rate Respiratory 17 Rate [Chest] Blood Pressure 105/46 Blood Pressure [Right] O2 Sat by Pulse 99 Oximetry 02/12/19 02/12/19 02/12/19 02:12 04:03 05:53 Temperature 97.8 F Pulse Rate 52 L Respiratory 17 17 Rate Respiratory Rate [Chest] Blood Pressure 97/39 Blood Pressure 127/49 [Right] O2 Sat by Pulse 95 Oximetry 02/12/19 02/12/19 07:00 08:14 Temperature 97.9 F Pulse Rate 59 L Respiratory 18 18 Rate Respiratory Rate [Chest] Blood Pressure 114/57 Blood Pressure [Right] O2 Sat by Pulse 100 Oximetry - Labs CBC & Chem 7: 02/12/19 03:50 02/12/19 03:50 Labs: Abnormal lab results 02/11/19 02/11/19 02/12/19 Range/Units 07:38 07:38 03:50 WBC 4.4 L 4.2 L (4.5-11.0) K/mm3 RBC 3.58 L 3.34 L (3.65-5.03) M/mm3 [place] % (Auto) 12.1 H (0.0-7.3) % Eos % (Auto) 9.0 H (0.0-4.3) % Potassium (3.6-5.0) mmol/L Chloride (98-107) mmol/L BUN 6 L (7-17) mg/dL Creatinine 0.6 L (0.7-1.2) mg/dL Glucose 122 H (65-100) mg/dL Magnesium (1.7-2.3) mg/dL Total Protein 6.2 L (6.3-8.2) g/dL Albumin 3.0 L (3.9-5) g/dL 02/12/19 Range/Units 03:50 WBC (4.5-11.0) K/mm3 RBC (3.65-5.03) M/mm3 [place] % (Auto) (0.0-7.3) % Eos % (Auto) (0.0-4.3) % Potassium 3.4 L (3.6-5.0) mmol/L Chloride 108.0 H (98-107) mmol/L BUN 3 L (7-17) mg/dL Creatinine 0.6 L (0.7-1.2) mg/dL Glucose 108 H (65-100) mg/dL Magnesium 1.60 L (1.7-2.3) mg/dL Total Protein (6.3-8.2) g/dL Albumin (3.9-5) g/dL Medications & Allergies - Medications Allergies/Adverse Reactions: Allergies No Known Allergies Allergy (Verified 02/10/19 09:28) Home Medications: Home Medications Medication Instructions Recorded Confirmed Last Taken Type HYDROcodone/APAP 10-325 [[place] 1 tab PO BID 02/04/19 02/10/19 02/07/19 21:00 History 10-325 mg TAB] Losartan/Hydrochlorothiazide 1 each PO DAILY 02/04/19 02/10/19 02/07/19 21:00 History [Hyzaar 100-12.5 Tablet] Ranitidine HCl [Zantac] 150 mg PO DAILY 02/04/19 02/10/19 02/07/19 21:00 History amLODIPine [Norvasc] 10 mg PO DAILY 02/04/19 02/10/19 02/08/19 05:15 History buPROPion [Wellbutrin] 200 mg PO DAILY 02/04/19 02/10/19 02/07/19 21:00 History Active Medications: Generic Name Dose Route Start Last Admin Trade Name Freq PRN Reason Stop Dose Admin Acetaminophen 650 mg 02/10/19 19:01 Tylenol PO Q4H PRN Pain MILD(1-3)/Fever >100.5/ANDERSON Heparin Sodium (Porcine) 5,000 unit 02/10/19 22:00 02/11/19 21:05 Heparin SUB-Q 5,000 unit Q12HR [facility] Administration Hydromorphone HCl 1 mg 02/10/19 19:05 02/12/19 08:14 Dilaudid IV 1 mg Q3H PRN Administration Pain , Severe (7-10) Dextrose/Sodium Chloride 1,000 mls @ 100 mls/hr 02/10/19 20:00 02/11/19 21:07 D5ns IV 100 mls/hr DIRECT [facility]ZEL Administration Ondansetron HCl 4 mg 02/11/19 11:03 02/12/19 08:14 Zofran IV 4 mg Q4H PRN Administration Nausea And Vomiting Pantoprazole Sodium 40 mg 02/11/19 08:00 02/11/19 21:05 Protonix IV 40 mg BID HAZEL Administration Sodium Chloride 10 ml 02/10/19 22:00 02/11/19 21:14 Sodium Chloride Flush Syringe 10 Ml IV 10 ml BID [facility] Administration Sodium Chloride 10 ml 02/10/19 19:01 Sodium Chloride Flush Syringe 10 Ml IV PRN PRN LINE FLUSH
[2019-02-12] MEDS: PROTONIX IV SCH ×2 (10:54→21:06)
[2019-02-12] MEDS: SODIUM CHLORIDE FLUSH SYRINGE 10 ML IV SCH ×2 (10:54→21:14)
[2019-02-12] MEDS: HEPARIN SUB-Q SCH ×2 (10:54→21:06)
[2019-02-12] MEDS ORDERED: MAGNESIUM SULFATE 2GM/50ML 2 GM/50 ML BAG IV ONE (11:00)
[2019-02-12] MEDS ORDERED: POTASSIUM CHLORIDE PO ONE (11:00)
--- NOTE | 2019-02-12 13:45 | Progress Note ---
Assessment and Plan Assessment and plan: Patient is a 62 yo woman with a history of HTN, PE in 2011, OA, Depression, GERD, status post gastric bypass and hernia repair who presents with nausea, vomiting and inability to eat after Gastric bypass revision surgery on February [id number]. * pCXR Impression: There is a small amount of right pleural fluid or pleural thickening, no pneumothorax is seen. * CT abd/pelvis with IV IMPRESSION: Changes of gastric bypass are noted. The esophagus is distended with air and contains a very small amount of fluid. This could represent reflux. Possibility of obstruction or stricture at the level the gastric remnant is considered as well. There is no free air. There are no abnormal fluid collections. There is a small amount of gas in the dominant wall right. (1) Esophageal stricture, Current Visit: Yes Status: Acute Plan to address problem: IV protonix initiated Clear Liquid diet Dr Chiu group to see, management per Bariatric surgery Consulted GI, input noted IV Zofran and Reglan (2) Post-operative complication Current Visit: Yes Status: Acute Qualifiers: Surgical complication system/body Area: digestive system Plan to address problem: As above in Esophageal stricture (3) HTN (hypertension) Current Visit: Yes Status: Chronic Qualifiers: Hypertension type: essential hypertension Qualified Code(s): I10 - Essential (primary) hypertension Plan to address problem: Cont anihypertensives (4) GERD (gastroesophageal reflux disease) Current Visit: Yes Status: Chronic Qualifiers: Esophagitis presence: with esophagitis Qualified Code(s): K21.0 - Gastro-es ophageal reflux disease with esophagitis Plan to address problem: On IV Protonix (5) Depression Current Visit: Yes Status: Chronic Qualifiers: Depression Type: unspecified Qualified Code(s): F32.9 - Major depressive disorder, single episode, unspecified Plan to address problem: Cont wellbutrin (6) DVT prophylaxis Current Visit: Yes Status: Acute Plan to address problem: On Lovernox Anticipate discharge tomorrow per Bariatric surgeon History Interval history: Patient was seen and examined. Follow-up on current diagnosis of N/V. No overnight events reported to me. Patient denies any chest pain, shortness breath, severe headaches. Imaging, nursing note, chart, labs and old chart reviewed. Discussed with patient. Hospitalist Physical - Physical exam Narrative exam: Gen: WDWN, NAD, Awake, Alert, Orientated, bmi 40.4 HEENT: NCAT, EOMI, PERRL, OP Clear Neck: supple, no adenopathy, no thyromegaly, no JVD CVS/Heart: RRR, normal S1S2, pulses present bilaterally Chest/Lungs: CTA B, Symmetrical chest expansion, good air entry bilaterally GI/Abdomen: soft, NTND, good bowel sounds, no guarding or rebound /Bladder: no suprapubic tenderness, no CVA or paraspinal tenderness Extermity/Skin: no c/c/e, no obvious rash MSK: FROM x 4 Neuro: CN 2-12 grossly intact, no new focal deficits Psych: calm - Constitutional Vitals: Temp Pulse Resp BP Pulse Ox 98 F 55 L 18 124/50 100 02/12/19 12:00 02/12/19 12:00 02/12/19 12:47 02/12/19 12:00 02/12/19 12:00 General appearance: Present: no acute distress, well-nourished Results - Labs CBC & Chem 7: 02/12/19 03:50 02/12/19 03:50 Labs: Laboratory Last Values WBC 4.2 K/mm3 (4.5-11.0) L 02/12/19 03:50 RBC 3.34 M/mm3 (3.65-5.03) L 02/12/19 03:50 Hgb 10.3 gm/dl (10.1-14.3) 02/12/19 03:50 Hct 30.8 % (30.3-42.9) 02/12/19 03:50 MCV 92 fl (79-97) 02/12/19 03:50 MCH 31 pg (28-32) 02/12/19 03:50 MCHC 33 % (30-34) 02/12/19 03:50 RDW 14.4 % (13.2-15.2) 02/12/19 03:50 Plt Count 184 K/mm3 (140-440) 02/12/19 03:50 Lymph % (Auto) 26.4 % (13.4-35.0) 02/11/19 07:38 [place] % (Auto) 12.1 % (0.0-7.3) H 02/11/19 07:38 Eos % (Auto) 9.0 % (0.0-4.3) H 02/11/19 07:38 Baso % (Auto) 0.6 % (0.0-1.8) 02/11/19 07:38 Lymph # 1.2 K/mm3 (1.2-5.4) 02/11/19 07:38 [place] # 0.5 K/mm3 (0.0-0.8) 02/11/19 07:38 Eos # 0.4 K/mm3 (0.0-0.4) 02/11/19 07:38 Baso # 0.0 K/mm3 (0.0-0.1) 02/11/19 07:38 Seg Neutrophils % 51.9 % (40.0-70.0) 02/11/19 07:38 Seg Neutrophils # 2.3 K/mm3 (1.8-7.7) 02/11/19 07:38 Sodium 141 mmol/L (137-145) 02/12/19 03:50 Potassium 3.4 mmol/L (3.6-5.0) L 02/12/19 03:50 Chloride 108.0 mmol/L (98-107) H 02/12/19 03:50 Carbon Dioxide 25 mmol/L (22-30) 02/12/19 03:50 11 mmol/L 02/12/19 03:50 BUN 3 mg/dL (7-17) L 02/12/19 03:50 0.6 mg/dL (0.7-1.2) L 02/12/19 03:50 Estimated GFR > 60 ml/min 02/12/19 03:50 5 % 02/12/19 03:50 Glucose 108 mg/dL (65-100) H 02/12/19 03:50 4.7 % (4-6) 02/10/19 10:00 Calcium 8.4 mg/dL (8.4-10.2) 02/12/19 03:50 Magnesium 1.60 mg/dL (1.7-2.3) L 02/12/19 03:50 0.50 mg/dL (0.1-1.2) 02/11/19 07:38 AST 22 units/L (5-40) 02/11/19 07:38 ALT 21 units/L (7-56) 02/11/19 07:38 49 units/L (35-129) 02/11/19 07:38 < 0.010 ng/mL (0.00-0.029) 02/10/19 15:16 6.2 g/dL (6.3-8.2) L 02/11/19 07:38 3.0 g/dL (3.9-5) L 02/11/19 07:38 0.9 % 02/11/19 07:38 Active Medications - Current Medications Current Medications: Generic Name Dose Route Start Last Admin Trade Name Freq PRN Reason Stop Dose Admin Acetaminophen 650 mg 02/10/19 19:01 Tylenol PO Q4H PRN Pain MILD(1-3)/Fever >100.5/ANDERSON Heparin Sodium (Porcine) 5,000 unit 02/10/19 22:00 02/12/19 10:54 Heparin SUB-Q 5,000 unit Q12HR HAZEL Administration Hydromorphone HCl 1 mg 02/10/19 19:05 02/12/19 12:17 Dilaudid IV 1 mg Q3H PRN Administration Pain , Severe (7-10) Dextrose/Sodium Chloride 1,000 mls @ 100 mls/hr 02/10/19 20:00 02/11/19 21:07 D5ns IV 100 mls/hr DIRECT HAZEL Administration Ondansetron HCl 4 mg 02/11/19 11:03 02/12/19 12:17 Zofran IV 4 mg Q4H PRN Administration Nausea And Vomiting Pantoprazole Sodium 40 mg 02/11/19 08:00 02/12/19 10:54 Protonix IV 40 mg BID HAZEL Administration Sodium Chloride 10 ml 02/10/19 22:00 02/12/19 10:54 Sodium Chloride Flush Syringe 10 Ml IV 10 ml BID HAZEL Administration Sodium Chloride 10 ml 02/10/19 19:01 Sodium Chloride Flush Syringe 10 Ml IV PRN PRN LINE FLUSH
[2019-02-12] MEDS: D5NS 1,000 ML IV SCH (16:37)
--- NOTE | 2019-02-13 00:42 | Progress Note ---
Assessment and Plan 63F [address] of [address] Messina s/p lap GJ revision with HHR 02/08/19, readmitted with nausea and vomiting, likely from GJ edema. #1 Nausea/vomiting #2 GJ edema #3 s/p lap GJ revision/HHR 02/08 - Bariatric clear liquid diet as tolerated - PPI - Cont IVFs - all medications should be crushed - ambulate ad mercedes - IS to patient - May dc home from surgery perspective. She already has a f/u appt with Dr Messina. Edyta Kaufman MD Bariatric Fellow Subjective Date of service: 02/13/19 Principal diagnosis: Nausea and vomiting Interval history: Patient tolerated CLD. No major events or changes. Objective - Exam Narrative Exam: Gen: AAO, NAD HEENT: Trachea midline, no masses Heart: RRR Lungs: CTAB, no wheezes, no rales Abd: Soft, obese, NT, ND. Bandages c/d/i. Ext: No LE edema - Constitutional Vitals: Vital Signs - 12hr 02/12/19 02/12/19 02/12/19 12:47 15:11 19:43 Temperature 98.0 F Pulse Rate 61 Respiratory 18 18 17 Rate Respiratory Rate [Chest] Blood Pressure 113/51 O2 Sat by Pulse 98 Oximetry 02/12/19 02/12/19 02/12/19 19:51 20:46 20:47 Temperature 97.9 F Pulse Rate 59 L 60 Respiratory 18 Rate Respiratory 17 Rate [Chest] Blood Pressure 119/57 119/57 O2 Sat by Pulse 97 97 Oximetry 02/12/19 02/13/19 21:07 00:10 Temperature 98.7 F Pulse Rate 52 L Respiratory 17 18 Rate Respiratory Rate [Chest] Blood Pressure 106/53 O2 Sat by Pulse 98 Oximetry - Labs CBC & Chem 7: 02/12/19 03:50 02/12/19 03:50 Labs: Abnormal lab results 02/12/19 02/12/19 Range/Units 03:50 03:50 WBC 4.2 L (4.5-11.0) K/mm3 RBC 3.34 L (3.65-5.03) M/mm3 Potassium 3.4 L (3.6-5.0) mmol/L Chloride 108.0 H (98-107) mmol/L BUN 3 L (7-17) mg/dL Creatinine 0.6 L (0.7-1.2) mg/dL Glucose 108 H (65-100) mg/dL Magnesium 1.60 L (1.7-2.3) mg/dL Medications & Allergies - Medications Allergies/Adverse Reactions: Allergies No Known Allergies Allergy (Verified 02/10/19 09:28) Home Medications: Home Medications Medication Instructions Recorded Confirmed Last Taken Type HYDROcodone/APAP 10-325 [[place] 1 tab PO BID 02/04/19 02/10/19 02/07/19 21:00 History 10-325 mg TAB] Losartan/Hydrochlorothiazide 1 each PO DAILY 02/04/19 02/10/19 02/07/19 21:00 History [Hyzaar 100-12.5 Tablet] Ranitidine HCl [Zantac] 150 mg PO DAILY 02/04/19 02/10/19 02/07/19 21:00 History amLODIPine [Norvasc] 10 mg PO DAILY 02/04/19 02/10/19 02/08/19 05:15 History buPROPion [Wellbutrin] 200 mg PO DAILY 02/04/19 02/10/19 02/07/19 21:00 History Active Medications: Generic Name Dose Route Start Last Admin Trade Name Freq PRN Reason Stop Dose Admin Acetaminophen 650 mg 02/10/19 19:01 Tylenol PO Q4H PRN Pain MILD(1-3)/Fever >100.5/ANDERSON Heparin Sodium (Porcine) 5,000 unit 02/10/19 22:00 02/12/19 21:06 Heparin SUB-Q 5,000 unit Q12HR HAZEL Administration Hydromorphone HCl 1 mg 02/10/19 19:05 02/12/19 21:07 Dilaudid IV 1 mg Q3H PRN Administration Pain , Severe (7-10) Dextrose/Sodium Chloride 1,000 mls @ 100 mls/hr 02/10/19 20:00 02/12/19 16:37 D5ns IV 100 mls/hr DIRECT HAZEL Administration Ondansetron HCl 4 mg 02/11/19 11:03 02/12/19 21:06 Zofran IV 4 mg Q4H PRN Administration Nausea And Vomiting Pantoprazole Sodium 40 mg 02/11/19 08:00 02/12/19 21:06 Protonix IV 40 mg BID HAZEL Administration Sodium Chloride 10 ml 02/10/19 22:00 02/12/19 21:14 Sodium Chloride Flush Syringe 10 Ml IV 10 ml BID HAZEL Administration Sodium Chloride 10 ml 02/10/19 19:01 Sodium Chloride Flush Syringe 10 Ml IV PRN PRN LINE FLUSH
[2019-02-13] MEDS: DILAUDID IV PRN ×4 (00:45→16:04)
[2019-02-13] MEDS: ZOFRAN IV PRN ×4 (00:45→16:04)
[2019-02-13] MEDS: D5NS 1,000 ML IV SCH ×2 (00:51→11:43)
[2019-02-13] MEDS: SODIUM CHLORIDE FLUSH SYRINGE 10 ML IV SCH (09:35)
[2019-02-13] MEDS: HEPARIN SUB-Q SCH (09:35)
[2019-02-13] MEDS: PROTONIX IV SCH (09:35)
--- NOTE | 2019-02-13 13:53 | Discharge Summary ---
Providers - Providers Date of Admission: 02/10/19 19:01 Date of discharge: 02/13/19 Attending physician: NASIMA PALENCIA 02/10/19 13:20 Consult to Physician [CONS] Stat Comment: Consulting Provider: ACE STEEN Physician Instructions: Reason For Exam: nausea and vomiting 02/11/19 14:30 Consult to Physician [CONS] Routine Comment: Consulting Provider: ARTURO GIBBS Physician Instructions: Reason For Exam: Esophageal stricture [facility] Condition: Stable Hospital course: Patient is a 62 yo woman with a history of HTN, PE in 2010, OA, Depression, GERD, status post gastric bypass and hernia repair who presents with nausea, vomiting and inability to eat after Gastric bypass revision surgery/lap gastrojejunostomy revision and hiatal hernia repair on 02/08/[address] Messina admitted for nausea/vomiting * pCXR Impression: There is a small amount of right pleural fluid or pleural thickening, no pneumothorax is seen. * CT abd/pelvis with IV IMPRESSION: Changes of gastric bypass are noted. The esophagus is distended with air and contains a very small amount of fluid. This could represent reflux. Possibility of obstruction or stricture at the level the gastric remnant is considered as well. There is no free air. There are no abnormal fluid collections. There is a small amount of gas in the dominant wall right. Discharge Diagnoses: Nausea/Vomiting likely 2/2 post surgical changes and edema at the distal es ophagus and repair site per GI without mentioning of esophageal stricture. Post-operative complication HTN (hypertension) GERD (gastroesophageal reflux disease) Morbid Obesity, bmi 41.8 Depression, no SI reported Disposition: DC-01 TO HOME OR SELFCARE Time spent for discharge: 35 minutes Core Measure Documentation - Palliative Care Palliative Care/ Comfort Measures: Not Applicable - Core Measures Any of the following diagnoses?: none - VTE Discharge Requirements Deep Vein Thrombosis/Pulmonary Embolism Present on Admission: No Has pt received <5 days of overlap therapy or INR<2.0: No Anticoagulant overlap therapy prescribed at discharge: No Contraindication No Overlap Therapy order at DC: Not Indicated Exam - Physical Exam Narrative exam: Gen: WDWN, NAD, Awake, Alert, Orientated, bmi 40.4 HEENT: NCAT, EOMI, PERRL, OP Clear Neck: supple, no adenopathy, no thyromegaly, no JVD CVS/Heart: RRR, normal S1S2, pulses present bilaterally Chest/Lungs: CTA B, Symmetrical chest expansion, good air entry bilaterally GI/Abdomen: soft, NTND, good bowel sounds, no guarding or rebound /Bladder: no suprapubic tenderness, no CVA or paraspinal tenderness Extermity/Skin: no c/c/e, no obvious rash MSK: FROM x 4 Neuro: CN 2-12 grossly intact, no new focal deficits Psych: calm - Constitutional Vitals: Temp Pulse Resp BP Pulse Ox 98.0 F 53 L 18 119/55 99 02/13/19 07:36 02/13/19 07:36 02/13/19 11:43 02/13/19 07:36 02/13/19 07:36 Plan Activity: other (no strenous activty until cleared by PCP) Diet: clear liquids, advance as tolerated Special Instructions: record daily BP diary Additional Instructions: see PCP prior to re-starting bp medications. Follow up with: ROSA CASTROKINGSTON MD JUSTINE [Primary Care Provider] - 3-5 Days ACE STEEN MD [Staff Physician] - 7 Days
[2019-02-13 16:28] VITALS: BP 118/59
== END 2019-02-13 19:25 | disposition home or self-care (01) | DRG 394 ==
LOC: ED 09:26 → 3B-SURG 19:01
PROVIDERS: ADMIT Internal Medicine; ATTEND Internal Medicine
DX: K95.89 Other complications of other bariatric procedure (principal); Z68.41 Body mass index [BMI] 40.0-44.9, adult; J94.8 Other specified pleural conditions; K22.2 Esophageal obstruction; F32.9 Major depressive disorder, single episode, unspecified; Y83.2 Surgical operation with anastomosis, bypass or graft as the cause of abnormal reaction of the patient, or of later complication, without mention of misadventure at the time of the procedure; E66.01 Morbid (severe) obesity due to excess calories; K21.0 Gastro-esophageal reflux disease with esophagitis; Z90.49 Acquired absence of other specified parts of digestive tract; Z82.49 Family history of ischemic heart disease and other diseases of the circulatory system; Y92.098 Other place in other non-institutional residence as the place of occurrence of the external cause; Z86.711 Personal history of pulmonary embolism; Z79.899 Other long term (current) drug therapy
CPT/HCPCS: 36415; 71045; 74177; 80048; 80053; 83036; 83735; 84484; 85025; 85027; 93005; 93010; 96374; 96375; G0378; C9113; J1170; J1644; J2405; J3010; J3475; J7030; J7042; Q9967